=== PATIENT | female | born 1985 | race Caucasian/White ===

== ENCOUNTER 2024-02-13 06:24 | Outpatient (CLI) | payer MEDICAID, SELFPAY ==
[2024-02-13] VITALS (10 sets, daily range): BP systolic 102–135; BP diastolic 52–79; PULSE 54–72; RESP 16–18; TEMP 36.6; O2SAT 99–100; BMI 50.0
--- NOTE | 2024-02-13 | CA_ITS ---
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 Ht: 5 ft 3 in Wt: 310lbs BSA: 2.33 BP: 138/90 mmHg Indications: ABN GXT, GRAJEDA, HTN, FAMILY HX-CAD, MURMUR 2D Dimensions IVSd 1.09 cm F: 0.6-1.0 LVEF (Visual) 71.30 % PWd 1.12 cm F: 0.6 - 1.0 LA Volume 60.20 mL LVDd 5.69 cm F: 3.9 - 5.3 LA Volume Index [id number] mL/m2 (M/F) 16-34 LVDs 3.35 cm F: 2.2 - 3.5 Left Atrium 3.88 cm F: 2.7 - 3.8 M-Mode Dimensions RVDd 2.82 cm (0.9-2.6) LA Diam 4.09 cm (1.9-4.0) LVDd 5.63 cm (3.5-5.7) LVDs 4.02 cm (3.5-5.7) IVSd 1.17 cm (0.6-1.1) PWd 1.05 cm (0.6-1.1) EF (Teich) 54.50% EPSs 0.89 cm FS 28.60% EDV (Teich) 155.60 mL TAPSE 1.70 (<1.7) ESV (Teich) 70.80 mL LV Diastology E Decel Time 187 (160-240 msec) E/A Ratio 0.95 MED A' 10.20 cm/s LAT A' 10.20 cm/s Aortic Valve FOREIGN Index 1.11 cm2/m2 AoV Peak [place]. 150.0 (50-130 cm/s) AO Peak GR. 9.00 mmHg AO Mean GR. 4.40 (<5 mmHg) AO VTI 32.3 (18-25 cm) FOREIGN (VTI) 2.66 (2.5-4.5 cm2) Mitral Valve MV A Velocity 116.0 (40-130 cm/s) E/A Ratio 0.95 MV Mean Gr. 3.20 (<2mmHg) Pulmonary Valve PV Peak Velocity 117.0 (50-150 cm/s) Tricuspid Valve TR P. Velocity 304.00 cm/s RAP Estimate 10.00 mmHg RVSP 47.00 mmHg Left Ventricle The left ventricle is normal size. The left ventricular systolic function is normal. The left ventricular ejection fraction is within the normal range. There is normal left ventricular wall thickness. There is normal LV segmental wall motion. The left ventricular diastolic function is normal. LVEF is 55%. Right Ventricle The right ventricle is normal size. The right ventricular systolic function is normal. Atria The left atrium size is normal. The right atrium size is normal. There is no Doppler evidence of interatrial shunt. Aortic Valve The aortic valve is normal in structure. There is no aortic valvular stenosis. No aortic regurgitation is present. Mitral Valve The mitral valve is normal in structure. No evidence of mitral valve stenosis. Mild mitral regurgitation. Tricuspid Valve The tricuspid valve leaflets are thin and pliable. Mild tricuspid regurgitation. RVSP is 30-35 mmHg. Pulmonic Valve The pulmonary valve is normal in structure. Trace pulmonic regurgitation. Great Vessels The aortic root is normal in size. The ascending aorta is normal in size. IVC is normal in size and collapses >50% with inspiration. Pericardium There is no pericardial effusion. Other Information Study Quality: Fair Conclusion Normal biventricular systolic function. Mild MR, mild TR. RVSP is 30-35 mmHg. Electronically signed by : Cierra Craig MD 02/15/2024 23:49:11
--- NOTE | 2024-02-13 07:00 | CT_ITS ---
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 A noncontrast coronary calcium scan was performed. A CT attenuation threshold of 130 Hounsfield units (HU) was used for the detection of calcium in contiguous voxels of 1 sq mm in area to be counted as individual lesions. Bolus tracking in the ascending aorta with a threshold of 180 HU was performed. Immediately afterwards, ECG synchronized cardiac CT was then performed from the cardiac base to apex using retrospective gating with ECG tube current modulation. A total of 85 mL of Isovue 370 mg/mL contrast medium was administered at 5 mL/sec followed by a saline flush using a biphasic injection protocol. A tube voltage of 120 KVp was used. The patient received the following medications prior to the cardiac CT. 50 mg of oral metoprolol 15 mg of oral ivabradine 0.8 mg of sublingual nitroglycerin The average heart rate at the time of acquisition was 55 bpm and regular. Image Reconstruction Transaxial images were reconstructed at 0.67 mm slide thickness. Data was reviewed interactively on an advanced workstation capable of 2 and 3-dimensional displays in all conventional reconstruction formats, including multiplanar reformations, maximum intensity projections, curved multiplanar reformations, and volume rendered reconstructions. When applicable, selected routine images describing the relevant coronary anatomy and pathology were saved and sent to PACS. Complications None Technical Quality Overall image quality was good. Coronary artery opacification was adequate. Total DLP (Dose-Length Product) is 1577.0 mGy-cm. The reported value represents the total of one or more individual components during the CT acquisition of this date and at this time, and as such, the same value may appear in more than one CT report depending on the interpreting/reporting physicians. COMPARISON None FINDINGS CT Coronary Calcium Scoring LMA (Left Main Artery) = 0 LAD (Left Anterior Descending) = 0 LCX (Left Coronary Circumflex) = 0 RCA (Right Coronary Artery) = 0 Total Calcium Score = 0 using the AJ-130 method. The interpretation of the calcium heart score is based on the following continuum*: 0 = no calcified plaque detected (risk of coronary artery disease is very low ??? less than 5%) 1-10 = calcium detected in extremely minimal levels (risk of coronary diseases is still low ??? less than 10%) 11-100 = mild levels of plaque detected with certainty (mild or minimal narrowing of heart arteries is likely) 101-400 = definite,at least moderate levels of plaque detected (relatively high risk of a heart attack within 3-5 years) >401-999 = extensive levels of plaque detected (high risk of heart attack, high levels of vascular disease are present, high likelihood of at least one significant coronary narrowing) *The calcium heart score quantifies the burden of coronary calcification/plaque in the coronary arteries. The calcium heart score is not able to evaluate the presence or burden of non-calcified (i.e. soft) plaque. There is no identifiable calcification in the aortic valve, mitral annulus or mitral valve, pericardium, or myocardium. Coronary CT Angiography The coronary arterial system is right dominant. Quantitative Stenosis Grading: Left Main (LM): The left main originates normally from the left sinus of Valsalva. The LM bifurcates into the left anterior descending artery and left circumflex artery. The LM is patent with no evidence of atherosclerosis. Left Anterior Descending (LAD) and Diagonal Branches: The LAD gives off 2 diagonal branch(es). The LAD and its branches are patent with no evidence of atherosclerosis. There is no evidence of LAD-myocardial bridge. Left Circumflex (LCX) and Obtuse Marginals (OM): The LCX gives off 1 Obtuse Marginal (OM) branch(es). The LCX and its branches are patent with no evidence of atherosclerosis. Right Coronary Artery (RCA): The RCA originates normally from the right sinus of Valsalva. The RCA gives off a posterior descending artery (PDA) and posterolateral (PL) branches. The RCA and its branches are patent with no evidence of atherosclerosis. Non-Coronary Cardiac Findings: Analysis of the left ventricular (LV) structure and function was performed after 3-D reconstruction of the LV from axial images, with user-corrected automatic contouring for assessment of LV volumes and user-defined reconstruction from oblique planes for measurement of 3-D cardiac structure and function. -The left ventricle systolic function is normal. -There is no left atrial appendage filling defect. Two right pulmonary veins and two left pulmonary veins drain normally into the left atrium. -No pericardial thickening or calcification. -Central and branch pulmonary arteries in the [id number] are unremarkable. -Thoracic aorta within the visualized thoracic aortic-branches in the [id number] is unremarkable. Extracardiac Structures No significant extra-cardiac findings. Note, however, that this study is focused on the cardiac findings. IMPRESSION -No coronary calcification with an Agatston score = 0 using the AJ-130 method. -No evidence of significant flow-limiting atherosclerosis of the coronary arteries. -No evidence of coronary anomalies or myocardial bridges. -CAD-RADS 0. Management recommendations per ACC/AHA guidelines*, as clinically appropriate. *Recommendations: CAD RADS 0: Reassurance. Consider non-atherosclerotic causes of chest pain. CAD RADS 1: Consider non-atherosclerotic causes of chest pain. Consider preventive therapy and risk factor modification. CAD RADS 2: Consider non-atherosclerotic causes of chest pain. Consider preventive therapy and risk factor modification, particularly for patients with nonobstructive plaque in multiple segments. CAD RADS 3: Consider further functional testing. Consider symptom-guided anti-ischemic and preventive pharmacotherapy as well as risk factor modification per published guideline statements. CAD RADS 4A: Consider further functional testing or invasive coronary angiography with revascularization per published guideline statements. Consider symptom-guided anti-ischemic and preventive pharmacotherapy as well as risk factor modification per published guideline statements. CAD RADS 4B: Invasive coronary angiography recommended with revascularization per published guideline statements. Consider symptom-guided anti-ischemic and preventive pharmacotherapy as well as risk factor modification per published guideline statements. CAD RADS 5: Consider invasive angiography and/or viability assessment with revascularization per published guideline statements. Consider symptom-guided anti-ischemic and preventive pharmacotherapy as well as risk factor modification per published guideline statements. CRITICAL RESULT None COMMUNICATION Per this written report The coronary and cardiac findings of this CCTA were reviewed, reported, and signed by Karl Craig MD (Fancy Wire Drawer) Conclusion Electronically signed by : Cierra Craig MD 02/15/2024 23:26:56
[2024-02-13 08:15] LABS: Anion Gap 11.6 mEq/L (5-15); Blood Urea Nitrogen 13 mg/dl (7-17); Calcium 9.6 mg/dl (8.4-10.2); Carbon Dioxide 27 mmol/L (22.0-30.0); Chloride 102 mmol/L (98-107); Creatinine Clearance Estimated 100 mL/min (50-200); Estimated Glomerular Filt Rate 95 ml/min (>60); GFR (African American) 115 ML/MIN (>60); Glucose 112 mg/dl (74-100); Potassium 3.6 mmoL/L (3.5-5.1); Sodium 137 mmol/L (136-145); Urine Pregnancy, HCG Qual. Negative (Negative)
[2024-02-13] MEDS: IVABRADINE HCL 7.5MG TABLET *IVABRADINE+METOPROLOL REGIMINE 15 MG PO (08:27)
[2024-02-13] MEDS: METOPROLOL TARTRATE 50MG TABLET *IVABRADINE+METOPROLOL REGIMINE 50 MG PO (08:27)
[2024-02-13] MEDS: NITROGLYCERIN 0.4MG SL TABLET 0.800000000000000044 MG SL (09:14)
[2024-02-13] MEDS: METOPROLOL TARTRATE 5MG/5ML VIAL *IVABRADINE+METOPROLOL REGIMINE 5 MG IV (09:25)
[2024-02-13] MEDS: IOPAMIDOL-370 (76%);100ML BOTTLE 85 ML IV (09:38)
[2024-02-13] MEDS: 0.9 % SODIUM CHLORIDE 50 ML VIAL IV (09:38)
[2024-02-13] MEDS: SODIUM CHLORIDE 0.9% 10ML SYR (RAD ONLY) 10 ML IV (09:38)
== END 2024-02-13 10:16 | disposition home or self-care (01) ==
LOC: RT 06:26 → RAD 08:25
PROVIDERS: Visit Provider Registered Nurse
DX: R06.09 Other forms of dyspnea (principal); R94.39 Abnormal result of other cardiovascular function study
CPT/HCPCS: 75571; 75574; 80048; 81025; 93306; Q9967